=== PATIENT | male | born 1975 | race American Indian/Alaskan Native ===

== ENCOUNTER 2017-11-09 18:39 | Emergency (ER) | payer SELFPAY ==
[2017-11-09 21:10] VITALS: BP 114/52
[2017-11-09 22:43] LABS: Bilirubin,Urine NEG (Negative); Blood,Urine NEG (Negative); Color,Urine Yellow (Yellow); Nitrite,Urine NEG (Negative); Protein,Urine <15 mg/dL mg/dL (Negative)
== END 2017-11-10 01:46 | disposition left against medical advice (07) ==
LOC: ED 18:39
DX: Z53.21 Procedure and treatment not carried out due to patient leaving prior to being seen by health care provider (principal)
CPT/HCPCS: 81001

== ENCOUNTER 2020-03-18 21:22 | Emergency (ER) | payer SELFPAY ==
[2020-03-18] MEDS ORDERED: ASPIRIN 325 MG TAB PO ONE (21:46)
[2020-03-18 22:11] LABS: Basophils % (Auto) 0.4 % (0.0-1.8); Eosinophils % (Auto) 0.6 % (0.0-4.3); Hematocrit 42.5 % (35.5-45.6); Hemoglobin 14.3 gm/dl (11.8-15.2); Lymphocytes # (Auto) 1.5 K/mm3 (1.2-5.4); Lymphocytes % (Auto) 35.1 % (13.4-35.0); Mean Corpuscular HGB Conc 34 % (32-34); Mean Corpuscular Volume 92 fl (84-94); Monocytes # (Auto) 0.4 K/mm3 (0.0-0.8); Monocytes % (Auto) 8.6 % (0.0-7.3); Platelet Count 239 K/mm3 (140-440); Red Blood Count 4.63 M/mm3 (3.65-5.03); Red Cell Distribution Width 13.9 % (13.2-15.2)
--- NOTE | 2020-03-18 22:14 | XRay Report ---
CHEST 2 VIEWS 2003 INDICATION / CLINICAL INFORMATION: MAIN: Chest Pain; Pt having Chest Pains after snorting cocaine x 3 hours ago COMPARISON: None available. FINDINGS: SUPPORT DEVICES: None. HEART / MEDIASTINUM: No significant abnormality. LUNGS / PLEURA: No significant pulmonary or pleural abnormality. No pneumothorax. ADDITIONAL FINDINGS: No significant additional findings. IMPRESSION: No significant acute abnormality Signer Name: Kendell Dunn MD Signed: 03/18/2020 10:09 PM Workstation Name: [id number]
[2020-03-18 22:31] LABS: BUN/Creatinine Ratio 11; Blood Urea Nitrogen 12 mg/dL (9-20); Calcium 9.7 mg/dL (8.4-10.2); Hemolysis Index 8
--- NOTE | 2020-03-18 22:50 | Emergency Department Report ---
ED Chest Pain HPI - General Chief Complaint: Chest Pain Stated Complaint: CHEST PAIN, SOB PUI?: No Time Seen by Provider: 03/18/20 22:45 Source: patient Mode of arrival: Ambulatory Limitations: No Limitations - History of Present Illness Initial Comments: Patient is a 44-year-old male that presents emergency room with complaints of chest pain. Patient dates his chest pain is been going on for 4 weeks. Patient states it is intermittent but has been constant for the last 3 days but patient states his chest pain resolved approximately 3 hours ago. Patient states he just wants to be checked out.. Patient states he uses cocaine and he smokes. Patient states his chest pain is worse with palpation of his chest wall and mov ement. Patient states his pain is better with rest and no movement. Patient denies shortness of breath. Patient denies past medical history except for asthma. Patient denies diabetes and hypertension. Patient states he smokes a half a pack to a pack of cigarettes per day. Patient states he uses cocaine 3 times a week. Patient denies fever and chills. Patient denies recent travel. Patient denies recent international travel. Patient denies exposure to the novel coronavirus. Patient denies sick contacts. Patient denies fever and chills. Patient denies cough. Patient denies diarrhea. Patient denies coming in contact with anybody with symptoms of the novel coronavirus. MD Complaint: chest pain -: Sudden Onset: during rest, during exertion Pain Location: substernal, left chest, right chest Pain Radiation: none Severity scale (0 -10): 0 Quality: aching Consistency: now resolved Improves With: rest, remaining still Worsens With: palpation, movement re: denies: nausea, vomting, diaphoresis, dyspnea, sense of impending doom Other Symptoms: denies: cough, fever, syncope, rash, acid taste in mouth, leg swelling, palpitations, burping Treatments Prior to Arrival: none Aspirin use within the Past 7 Days: (0) No - Related Data On Oral Contraceptives: No Previous Rx's Medication Instructions Recorded Last Taken Type Amoxicillin/K Clav Tab [Augmentin 1 tab PO BID #20 tablet 03/10/15 Unknown Rx 875MG] HYDROcodone/ACETAMINOPHEN [[place] 1 each PO Q6HR #20 tablet 03/10/15 Unknown Rx 7.5-325 mg TAB] Ibuprofen [Motrin] 600 mg PO Q8H PRN #40 tablet 03/10/15 Unknown Rx Sulfamethoxazole/Trimethoprim 1 each PO BID #10 tablet 06/25/16 Unknown Rx [Bactrim DS TAB] Allergies Allergy/AdvReac Type Severity Reaction Status Date / Time No Known Allergies Allergy Unverified 03/09/15 19:12 Heart Score - HEART Score History: Slightly suspicious EKG: Normal Age: < 45 Risk factors: 1-2 risk factors Troponin: < normal limit HEART Score: 1 ED Review of Systems ROS: Stated complaint: CHEST PAIN, SOB Other details as noted in HPI Constitutional: denies: chills, fever Eyes: denies: eye pain, eye discharge, vision change ENT: denies: ear pain, throat pain Respiratory: denies: cough, shortness of breath, wheezing Cardiovascular: chest pain. denies: palpitations Endocrine: no symptoms reported Gastrointestinal: denies: abdominal pain, nausea, diarrhea Genitourinary: denies: urgency, dysuria Musculoskeletal: denies: back pain, joint swelling, arthralgia Skin: denies: rash, lesions Neurological: denies: headache, weakness, paresthesias Psychiatric: denies: anxiety, depression Hematological/Lymphatic: denies: easy bleeding, easy bruising ED Past Medical Hx - Past Medical History Previous Medical History?: Yes Hx Asthma: Yes Additional medical history: peptic ulcer,blood transfusions - Surgical History Past Surgical History?: No - Family History Family history: no significant - Social History Smoking Status: Current Every Day Smoker Substance Use Type: Alcohol, Cocaine, Marijuana - Medications Home Medications: Home Medications Medication Instructions Recorded Confirmed Last Taken Type Amoxicillin/K Clav Tab [Augmentin 1 tab PO BID #20 tablet 03/10/15 Unknown Rx 875MG] HYDROcodone/ACETAMINOPHEN [[place] 1 each PO Q6HR #20 tablet 03/10/15 Unknown Rx 7.5-325 mg TAB] Ibuprofen [Motrin] 600 mg PO Q8H PRN #40 tablet 03/10/15 Unknown Rx Sulfamethoxazole/Trimethoprim 1 each PO BID #10 tablet 06/25/16 Unknown Rx [Bactrim DS TAB] ED Physical Exam - General Limitations: No Limitations General appearance: alert, in no apparent distress - Head Head exam: Present: atraumatic, normocephalic - Eye Eye exam: Present: normal appearance - ENT ENT exam: Present: mucous membranes moist - Neck Neck exam: Present: normal inspection - Respiratory Respiratory exam: Present: normal lung sounds bilaterally, chest wall tenderness (Palpation of chest wall reproduces symptoms.). Absent: respiratory distress - Cardiovascular Cardiovascular Exam: Present: regular rate, normal rhythm. Absent: systolic murmur, diastolic murmur, rubs, gallop - GI/Abdominal GI/Abdominal exam: Present: soft, normal bowel sounds - Rectal Rectal exam: Present: deferred - Extremities Exam Extremities exam: Present: normal inspection - Back Exam Back exam: Present: normal inspection - Neurological Exam Neurological exam: Present: alert, oriented X3 - Psychiatric Psychiatric exam: Present: normal affect, normal mood - Skin Skin exam: Present: warm, dry, intact, normal color. Absent: rash ED Course Vital Signs 03/18/20 21:44 Temperature 98.3 F Pulse Rate 78 Respiratory 18 Rate Blood Pressure 135/80 O2 Sat by Pulse 100 Oximetry - Reevaluation(s) Reevaluation #1: Patient states he is pain-free. Patient states he is feeling better. 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 Patient given local resources for substance abuse programs. I discussed all results and clinical findings with patient. I discussed plan of care with patient. Patient agrees with plan of care. Patient is stable for discharge. Patient will be discharged home. Patient given discharge instructions. Patient voiced understanding of discharge instructions. Patient given resources to assist him to stop smoking and doing cocaine. 03/18/20 23:07 ADI score - Adi Score Age > 65: (0) No Aspirin use within the Past 7 Days: (0) No 3 or more CAD Risk Factors: (0) No 2 or more Angina events in past 24 hrs: (0) No Known CAD with more than 50% Stenosis: (0) No Elevated Cardiac Markers: (0) No ST Deviation Greater than 0.5mm: (0) No ADI Score: 0 ED Medical Decision Making - Lab Data Result diagrams: 03/18/20 21:48 03/18/20 21:48 - EKG Data -: EKG Interpreted by Me EKG shows normal: sinus rhythm, axis, intervals, QRS complexes, ST-T waves Rate: normal - EKG Data Interpretation: LV[facility] - Radiology Data Radiology results: report reviewed, image reviewed CHEST 2 VIEWS 2003 INDICATION / CLINICAL INFORMATION: MAIN: Chest Pain; Pt having Chest Pains after snorting cocaine x 3 hours ago COMPARISON: None available. FINDINGS: SUPPORT DEVICES: None. HEART / MEDIASTINUM: No significant abnormality. LUNGS / PLEURA: No significant pulmonary or pleural abnormality. No pneumothorax. ADDITIONAL FINDINGS: No significant additional findings. IMPRESSION: No significant acute abnormality - Medical Decision Making Patient is a 44-year-old male that presents emergency room with complaints of chest pain. Patient has been going on for 4 weeks. Patient initial cardiac work-up was negative. Patient's EKG is negative for ST elevation or a STEMI. Patient's chest x-ray is negative for acute findings. Patient's labs are negative. Patient's cardiac enzymes are negative. Patient on exam chest pain was reproducible. Patient states he did not have any chest pain at the time of exam but palpation of his chest wall reproduces his pain. Patient also uses cocaine and smokes. Patient given substance abuse programs and resources as an outpatient. Patient stable for discharge. Patient was discharged home. 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 - Differential Diagnosis Chest pain, chest wall pain, muscular pain, cocaine use Critical care attestation.: If time is entered above; I have spent that time in minutes in the direct care of this critically ill patient, excluding procedure time. ED Disposition Clinical Impression: Smoking, Cocaine use, Chest wall pain Chest pain Qualifiers: Chest pain type: unspecified Qualified Code(s): R07.9 - Chest pain, unspecified Disposition: DC-01 TO HOME OR SELFCARE Is pt being admited?: No Does the pt Need Aspirin: No Condition: Stable Instructions: Chest Pain (ED), How to Stop Smoking (ED), Costochondritis (ED), Cocaine Abuse (ED) Additional Instructions: Patient to follow-up with primary care in 2 to 3 days. Patient to follow-up with cardiology in 2 to 3 days. Patient to start an aspirin 81 mg daily. Patient to stop smoking. Patient to stop using cocaine. Patient to rest. Patient to increase water. Patient to avoid strenuous exercise or heavy lifting until cleared by cardiology. Patient to take Tylenol or ibuprofen as needed for pain. Patient to return to the ER if condition worsens, changes or new symptoms arise. Patient's information sent over to [facility] for further evaluation and work-up of his chest pain. Referrals: FIDEL MACK MD [Staff Physician] - 2-3 Days RAISSA ASHLEY MD [Staff Physician] - 2-3 Days Time of Disposition: 23:06
[2020-03-18 23:20] VITALS: BP 135/80
== END 2020-03-18 23:33 | disposition home or self-care (01) ==
LOC: ED 21:22
DX: R07.89 Other chest pain (principal); J45.909 Unspecified asthma, uncomplicated; Z79.899 Other long term (current) drug therapy
CPT/HCPCS: 36415; 71046; 80048; 84484; 85025; 93005

== ENCOUNTER 2020-03-19 14:51 | Emergency (ER) | payer SELFPAY ==
[2020-03-19 15:01] VITALS: BP 124/72
[2020-03-19 15:49] LABS: Basophils % (Auto) 0.9 % (0.0-1.8); Eosinophils # (Auto) 0.1 K/mm3 (0.0-0.4); Eosinophils % (Auto) 3.1 % (0.0-4.3); Hematocrit 44.4 % (35.5-45.6); Lymphocytes # (Auto) 1.7 K/mm3 (1.2-5.4); Lymphocytes % (Auto) 37.2 % (13.4-35.0); Mean Corpuscular HGB Conc 34 % (32-34); Mean Corpuscular Volume 93 fl (84-94); Monocytes # (Auto) 0.5 K/mm3 (0.0-0.8); Monocytes % (Auto) 11.8 % (0.0-7.3); Platelet Count 236 K/mm3 (140-440); Red Blood Count 4.78 M/mm3 (3.65-5.03); Red Cell Distribution Width 14.1 % (13.2-15.2)
[2020-03-19 16:01] LABS: BUN/Creatinine Ratio 10; Blood Urea Nitrogen 14 mg/dL (9-20); Calcium 9.7 mg/dL (8.4-10.2); Hemolysis Index 15
--- NOTE | 2020-03-19 16:28 | Emergency Department Report ---
ED GI Bleed HPI - General Chief complaint: GI Bleed Stated complaint: BLEEDING ANUS Time Seen by Provider: 03/19/20 16:13 Source: patient Mode of arrival: Ambulatory Limitations: No Limitations - History of Present Illness Initial comments: This is a 44-year-old male with a history of gastric ulcers who presents to the ED complaining of bright red blood with bowel movement that started yesterday. Patient states today when he went to the bathroom also was red blood inside of stool. Patient denies rectal pain, history of hemorrhoids pt. reports some right-sided abdominal pain Pt. denies fever, chills, chest pain, sob, n/v, abdominal trauma or injury, MD complaint: blood streaked emesis - Related Data Previous Rx's Medication Instructions Recorded Last Taken Type Amoxicillin/K Clav Tab [Augmentin 1 tab PO BID #20 tablet 03/10/15 Unknown Rx 875MG] HYDROcodone/ACETAMINOPHEN [[place] 1 each PO Q6HR #20 tablet 03/10/15 Unknown Rx 7.5-325 mg TAB] Ibuprofen [Motrin] 600 mg PO Q8H PRN #40 tablet 03/10/15 Unknown Rx Sulfamethoxazole/Trimethoprim 1 each PO BID #10 tablet 06/25/16 Unknown Rx [Bactrim DS TAB] Albuterol INH(or & Nicu Only) 2 puff IH QID PRN #8.5 gram 03/19/20 Unknown Rx [ProAir HFA Inhaler] Dibucaine [Hemorrhoidal-Analgesic] 1 applic TP BID #1 oint...g. 03/19/20 Unknown Rx Hydrocortisone [Anucort-HC SUPPOS] 25 mg RC BID #20 supp.rect 03/19/20 Unknown Rx Allergies Allergy/AdvReac Type Severity Reaction Status Date / Time No Known Allergies Allergy Unverified 03/09/15 19:12 ED Review of Systems ROS: Stated complaint: BLEEDING ANUS Other details as noted in HPI Comment: All other systems reviewed and negative ED Past Medical Hx - Past Medical History Previous Medical History?: Yes Hx Asthma: Yes Additional medical history: peptic ulcer,blood transfusions - Surgical History Past Surgical History?: Yes Additional Surgical History: "laser surgery" - Social History Smoking Status: Never Smoker Substance Use Type: Cocaine, Marijuana - Medications Home Medications: Home Medications Medication Instructions Recorded Confirmed Last Taken Type Amoxicillin/K Clav Tab [Augmentin 1 tab PO BID #20 tablet 03/10/15 Unknown Rx 875MG] HYDROcodone/ACETAMINOPHEN [[place] 1 each PO Q6HR #20 tablet 03/10/15 Unknown Rx 7.5-325 mg TAB] Ibuprofen [Motrin] 600 mg PO Q8H PRN #40 tablet 03/10/15 Unknown Rx Sulfamethoxazole/Trimethoprim 1 each PO BID #10 tablet 06/25/16 Unknown Rx [Bactrim DS TAB] Albuterol INH(or & Nicu Only) 2 puff IH QID PRN #8.5 gram 03/19/20 Unknown Rx [ProAir HFA Inhaler] Dibucaine [Hemorrhoidal-Analgesic] 1 applic TP BID #1 oint...g. 03/19/20 Unknown Rx Hydrocortisone [Anucort-HC SUPPOS] 25 mg RC BID #20 supp.rect 03/19/20 Unknown Rx ED Physical Exam - General Limitations: No Limitations General appearance: alert, in no apparent distress - Head Head exam: Present: atraumatic, normocephalic - Eye Eye exam: Present: normal appearance - ENT ENT exam: Present: mucous membranes moist - Neck Neck exam: Present: normal inspection - Respiratory Respiratory exam: Present: normal lung sounds bilaterally. Absent: respiratory distress - Cardiovascular Cardiovascular Exam: Present: regular rate, normal rhythm. Absent: systolic murmur, diastolic murmur, rubs, gallop - GI/Abdominal GI/Abdominal exam: Present: soft, normal bowel sounds - Rectal Rectal exam: Present: deferred, normal rectal tone, heme (+) stool, hemorrhoids (External,), tenderness - exam: Present: normal inspection External exam: Present: normal external exam - Extremities Exam Extremities exam: Present: normal inspection - Back Exam Back exam: Present: normal inspection - Neurological Exam Neurological exam: Present: alert, oriented X3 - Psychiatric Psychiatric exam: Present: normal affect, normal mood - Skin Skin exam: Present: warm, dry, intact, normal color. Absent: rash ED Course Vital Signs 03/19/20 14:54 Temperature 98.8 F Pulse Rate 90 Respiratory 16 Rate Blood Pressure 124/72 O2 Sat by Pulse 100 Oximetry ED Medical Decision Making - Lab Data Result diagrams: 03/19/20 15:07 03/19/20 15:07 Laboratory Last Values WBC 4.5 K/mm3 (4.5-11.0) 03/19/20 15:07 RBC 4.78 M/mm3 (3.65-5.03) 03/19/20 15:07 Hgb 15.0 gm/dl (11.8-15.2) 03/19/20 15:07 Hct 44.4 % (35.5-45.6) 03/19/20 15:07 MCV 93 fl (84-94) 03/19/20 15:07 MCH 31 pg (28-32) 03/19/20 15:07 MCHC 34 % (32-34) 03/19/20 15:07 RDW 14.1 % (13.2-15.2) 03/19/20 15:07 Plt Count 236 K/mm3 (140-440) 03/19/20 15:07 Lymph % (Auto) 37.2 % (13.4-35.0) H 03/19/20 15:07 [place] % (Auto) 11.8 % (0.0-7.3) H 03/19/20 15:07 Eos % (Auto) 3.1 % (0.0-4.3) 03/19/20 15:07 Baso % (Auto) 0.9 % (0.0-1.8) 03/19/20 15:07 Lymph # 1.7 K/mm3 (1.2-5.4) 03/19/20 15:07 [place] # 0.5 K/mm3 (0.0-0.8) 03/19/20 15:07 Eos # 0.1 K/mm3 (0.0-0.4) 03/19/20 15:07 Baso # 0.0 K/mm3 (0.0-0.1) 03/19/20 15:07 Seg Neutrophils % 47.0 % (40.0-70.0) 03/19/20 15:07 Seg Neutrophils # 2.1 K/mm3 (1.8-7.7) 03/19/20 15:07 PT 13.3 Sec. (12.2-14.9) 03/19/20 16:13 INR 1.00 (0.87-1.13) 03/19/20 16:13 APTT 28.2 Sec. (24.2-36.6) 03/19/20 16:13 Sodium 136 mmol/L (137-145) L 03/19/20 15:07 Potassium 4.1 mmol/L (3.6-5.0) 03/19/20 15:07 Chloride 97.1 mmol/L (98-107) L 03/19/20 15:07 Carbon Dioxide 25 mmol/L (22-30) 03/19/20 15:07 Anion Gap 18 mmol/L 03/19/20 15:07 BUN 14 mg/dL (9-20) 03/19/20 15:07 Creatinine 1.4 mg/dL (0.8-1.5) 03/19/20 15:07 Estimated GFR > 60 ml/min 03/19/20 15:07 BUN/Creatinine Ratio 10 % 03/19/20 15:07 Glucose 95 mg/dL (75-100) 03/19/20 15:07 Calcium 9.7 mg/dL (8.4-10.2) 03/19/20 15:07 - Radiology Data Radiology results: report reviewed, image reviewed CT ABDOMEN AND PELVIS WITHOUT CONTRAST INDICATION / CLINICAL INFORMATION: abd pain/rectal bleed. TECHNIQUE: Axial CT images were obtained through the abdomen and pelvis without IV contrast. All CT scans at this location are performed using CT dose reduction for ALARA by means of automated exposure control. COMPARISON: None available. FINDINGS: Exam is of limited diagnostic quality without intravenous and or oral contrast LOWER CHEST: No significant abnormality. LIVER: No significant abnormality. GALLBLADDER: Gallbladder appears be markedly contracted BILE DUCTS: No significant abnormality. PANCREAS: No significant abnormality. SPLEEN: No significant abnormality. ADRENALS: No significant abnormality. RIGHT KIDNEY and URETER: No significant abnormality. LEFT KIDNEY and URETER: No significant abnormality. STOMACH and SMALL BOWEL: No significant abnormality. COLON: No significant abnormality. APPENDIX: No significant abnormality. PERITONEUM: No free fluid. No free air. No fluid collection. LYMPH NODES: No significant adenopathy. AORTA and ARTERIES: No significant abnormality. IVC and VEINS: No significant abnormality. URINARY BLADDER: No significant abnormality. REPRODUCTIVE ORGANS: No significant abnormality. ADDITIONAL FINDINGS: None. SKELETAL SYSTEM: No significant abnormality. IMPRESSION: 1. No significant abnormality. Signer Name: Eulalio Sheth MD Signed: 03/19/2020 4:51 PM Workstation Name: [id number] Transcribed By: AMRIT Dictated By: Eulalio Sheth MD Electronically Authenticated By: Eulalio Sheth MD Signed Date/Time: 03/19/20 0821 - Medical Decision Making This 44-year-old male presents with internal/external hemorrhoids that cause rectal bleeding today. All labs are within normal limits, CT scan shows no acute bleed process, see report above Discussed all findings with the patient. Discussed medication suppositories with the patient. Discussed follow-up with primary care physician as well as GI. All vital signs are normal patient is in no acute distress patient will be discharged at this time Critical care attestation.: If time is entered above; I have spent that time in minutes in the direct care of this critically ill patient, excluding procedure time. ED Disposition Clinical Impression: Rectal bleed, Bleeding external hemorrhoids Disposition: TO HOME OR SELFCARE Is pt being admited?: No Does the pt Need Aspirin: No Condition: Stable Instructions: Hemorrhoids (ED), Rectal Bleeding (ED) Additional Instructions: Make sure to follow up with the primary care physician as discussed. Take your medications as you've been prescribed. If you have any worsening symptoms or develop new symptoms please return to ED immediately. Prescriptions: Hydrocortisone [Anucort-HC SUPPOS] 25 mg RC BID #20 supp.rect Dibucaine [Hemorrhoidal-Analgesic] 1 applic TP BID #1 oint...g. Albuterol INH(or & Nicu Only) [ProAir HFA Inhaler] 2 puff IH QID PRN #8.5 gram PRN Reason: Shortness Of Breath Referrals: PRIMARY CAREMD [Primary Care Provider] - 3-5 Days [facility] [Provider Group] - 3-5 Days [facility] [Provider Group] - 3-5 Days [facility] [Outside] - 3-5 Days [facility] [Outside] - 3-5 Days Forms: Work/School Release Form(ED) Time of Disposition: 17:27
[2020-03-19 16:37] LABS: Partial Thromboplastin Time 28.2 Sec. (24.2-36.6)
--- NOTE | 2020-03-19 16:55 | Cat Scan Report ---
CT ABDOMEN AND PELVIS WITHOUT CONTRAST INDICATION / CLINICAL INFORMATION: abd pain/rectal bleed. TECHNIQUE: Axial CT images were obtained through the abdomen and pelvis without IV contrast. All CT scans at [facility] location are performed using CT dose reduction for ALARA by means of automated exposure control. COMPARISON: None available. FINDINGS: Exam is of limited diagnostic quality without intravenous and or oral contrast LOWER CHEST: No significant abnormality. LIVER: No significant abnormality. GALLBLADDER: Gallbladder appears be markedly contracted BILE DUCTS: No significant abnormality. PANCREAS: No significant abnormality. SPLEEN: No significant abnormality. ADRENALS: No significant abnormality. RIGHT KIDNEY and URETER: No significant abnormality. LEFT KIDNEY and URETER: No significant abnormality. STOMACH and SMALL BOWEL: No significant abnormality. COLON: No significant abnormality. APPENDIX: No significant abnormality. PERITONEUM: No free fluid. No free air. No fluid collection. LYMPH NODES: No significant adenopathy. AORTA and ARTERIES: No significant abnormality. IVC and VEINS: No significant abnormality. URINARY BLADDER: No significant abnormality. REPRODUCTIVE ORGANS: No significant abnormality. ADDITIONAL FINDINGS: None. SKELETAL SYSTEM: No significant abnormality. IMPRESSION: 1. No significant abnormality. Signer Name: Eulalio Sheth MD Signed: 03/19/2020 4:51 PM Workstation Name: [id number]
== END 2020-03-19 17:30 | disposition home or self-care (01) ==
LOC: ED 14:51
DX: K62.5 Hemorrhage of anus and rectum (principal); K64.4 Residual hemorrhoidal skin tags; J45.909 Unspecified asthma, uncomplicated; F12.90 Cannabis use, unspecified, uncomplicated; F14.90 Cocaine use, unspecified, uncomplicated; Z98.890 Other specified postprocedural states; Z79.899 Other long term (current) drug therapy
CPT/HCPCS: 36415; 74176; 80048; 85025; 85610; 85730; 99284